=== PATIENT | male | born 1960 | race African-American/Black ===

== ENCOUNTER 2018-02-17 22:08 | Emergency (ER) | payer OTHER ==
[2018-02-17 22:37] VITALS: BP 163/100; PULSE 102; TEMP 97.6; BMI 39.5
[2018-02-17] MEDS ORDERED: ACETAMINOPHEN 500 MG TABLET (FP) PO ONE (23:34)
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
[2018-02-17] MEDS ORDERED: ACETAMINOPHEN 325 MG TABLET (FP) ONE (23:42)
== END 2018-02-18 01:05 | disposition home or self-care (01) ==
LOC: JER 22:08
DX: S49.82XA Other specified injuries of left shoulder and upper arm, initial encounter (principal); W18.39XA Other fall on same level, initial encounter; Y93.89 Activity, other specified; Y92.118 Other place in children's home and orphanage as the place of occurrence of the external cause; Y99.0 Civilian activity done for income or pay
CPT/HCPCS: 73030-TC-LT-FY; 99281-25

== ENCOUNTER 2019-01-13 00:16 | Emergency (ER) | payer OTHER ==
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
--- NOTE | 2019-01-13 02:18 | PDOC ---
*Physical Exam - Vital Signs Last Vital Signs Temp Pulse Resp BP Pulse Ox 98.1 F 100 H 16 144/81 97 01/13/19 00:16 01/13/19 00:16 01/13/19 00:16 01/13/19 00:16 01/13/19 00:16 Medical Decision Making - Medical Decision Making 01/13/19 02:18 Patient seen by the advanced practice provider under my direct supervision. Ancillary testing reviewed as necessary. I agree with plan as outlined by the advanced practice provider. *DC/Admit/Observation/Transfer Diagnosis at time of Disposition: Headache, Neck strain - Discharge Dispostion Condition at time of disposition: Fair - Referrals Referrals: Tmi Souza MD [Primary Care Provider] - - Patient Instructions - Post Discharge Activity
[2019-01-13 02:23] VITALS: BP 144/81; PULSE 100; TEMP 98.1; BMI 43.2
[2019-01-13] MEDS ORDERED: KETOROLAC TROMETHAMINE 30 MG/1 ML VIAL IM ONE (03:11)
[2019-01-13] MEDS ORDERED: KETOROLAC TROMETHAMINE 30 MG/1 ML VIAL ONE (03:26)
== END 2019-01-13 03:30 | disposition home or self-care (01) ==
LOC: JER 00:16
PROC: 3E0233Z Introduction of Anti-inflammatory into Muscle, Percutaneous Approach (ICD-10-PCS; principal; 2019-01-13)
DX: S16.1XXA Strain of muscle, fascia and tendon at neck level, initial encounter (principal); Y04.2XXA Assault by strike against or bumped into by another person, initial encounter; Y93.89 Activity, other specified; Y92.159 Unspecified place in reform school as the place of occurrence of the external cause; Y99.0 Civilian activity done for income or pay; Z72.0 Tobacco use; R10.9 Unspecified abdominal pain; E78.00 Pure hypercholesterolemia, unspecified
CPT/HCPCS: 70450-TC; 72125-TC; 99281-25

== ENCOUNTER 2020-07-26 17:16 | Emergency (ER) | payer OTHER ==
[2020-07-26 17:24] VITALS: BP 150/76; PULSE 94; TEMP 98; BMI 40.8
[2020-07-26] MEDS ORDERED: DIPHTH,PERTUSS(ACELL),TET 0.5 ML DISP.SYRIN IM ONE ×2 (18:07→18:17)
== END 2020-07-26 20:31 | disposition home or self-care (01) ==
LOC: JERFT 17:16
PROC: 3E0234Z Introduction of Serum, Toxoid and Vaccine into Muscle, Percutaneous Approach (ICD-10-PCS; principal; 2020-07-26)
DX: S61.319A Laceration without foreign body of unspecified finger with damage to nail, initial encounter (principal)
CPT/HCPCS: 73140-TC-LT-FY; 90715; 99284-25

== ENCOUNTER 2020-11-08 14:42 | Emergency (ER) | payer OTHER ==
[2020-11-08 14:56] VITALS: BP 160/66; PULSE 99; TEMP 98.8; BMI 40.8
== END 2020-11-08 16:03 | disposition home or self-care (01) ==
LOC: FER 14:42
DX: U07.1 COVID-19 (principal)
CPT/HCPCS: 71045-TC-FY; 99284-25; C9803; U0003

== ENCOUNTER 2020-11-09 08:35 | Emergency (ER) | payer OTHER ==
[2020-11-09 09:01] VITALS: BMI 41.1
[2020-11-09] MEDS ORDERED: BAMLANIVIMAB 700 MG in SODIUM CHLORIDE 250 ML IVPB ONE (09:31)
[2020-11-09 11:57] VITALS: TEMP 98
[2020-11-09 12:09] LABS: BASO % 0.6 % (0-2.0); EOS % 0.6 % (0-4.5); HEMATOCRIT 38.9 % (35.4-49); HEMOGLOBIN 13.4 GM/dL (11.7-16.9); LYMPH % 32.7 % (8-40); MCH 33.1 pg (25.7-33.7); MCHC 34.3 g/dl (32.0-35.9); MEAN CELL VOLUME 96.5 fl (80-96); MEAN PLT VOLUME 7.4 fl (7.5-11.1); MONO % 12.8 % (3.8-10.2); NEUT % 53.3 % (42.8-82.8); PLATELET COUNT 209 K/MM3 (134-434); RBC 4.04 M/mm3 (4.00-5.60); RDW 11.9 % (11.9-15.9); WHITE BLOOD COUNT 3.7 K/mm3 (4.0-10.0)
[2020-11-09 12:35] LABS: POTASSIUM 4.1 mmol/L (3.5-5.1)
[2020-11-09 12:37] LABS: CALCIUM 9.1 mg/dL (8.5-10.1)
[2020-11-09 12:41] LABS: CREATININE 1.1 mg/dL (0.55-1.3)
[2020-11-09 12:42] LABS: BILIRUBIN,TOTAL 0.7 mg/dL (0.2-1); TOT PROT 7.8 g/dl (6.4-8.2)
[2020-11-09 13:15] VITALS: BP 133/75; PULSE 86
[2020-11-09] MEDS ORDERED: ACETAMINOPHEN 1000 MG/100 ML VIAL (NON FORMULARY) IVPB ONE (14:02)
== END 2020-11-09 15:04 | disposition home or self-care (01) ==
LOC: JER 08:35
DX: U07.1 COVID-19 (principal)
CPT/HCPCS: 36415; 80053; 85025; 99284-25; J0131; M0239; Q0239

== ENCOUNTER 2021-11-29 19:30 | Emergency (ER) | payer OTHER ==
[2021-11-29 19:40] VITALS: BP 145/84; PULSE 90; TEMP 98.5; BMI 43.6
[2021-11-29] MEDS ORDERED: FAMOTIDINE 20 MG TABLET PO ONE (20:43)
[2021-11-29] MEDS ORDERED: MAG HYDROX/AL HYDROX/SIMETH 30 ML UNIT-DOSE CUP PO ONE (20:43)
[2021-11-29] MEDS ORDERED: MAG HYDROX/AL HYDROX/SIMETH 30 ML UNIT-DOSE CUP ONE (20:52)
[2021-11-29] MEDS ORDERED: FAMOTIDINE 20 MG TABLET ONE (20:52)
[2021-11-29 21:13] LABS: ALBUMIN 4.5 g/dl (3.4-5.0); ALK PHOS 46 U/L (45-117); ANION GAP 18 MMOL/L (8-16); BILIRUBIN,TOTAL 0.6 mg/dl (0.2-1); CALCIUM 9.9 mg/dl (8.5-10); CHLORIDE 97 mmol/L (98-107); CO2 21 mmol/L (21-32); GLUCOSE,RANDOM 110 mg/dl (74-106); SGOT/AST 24 U/L (15-37); SGPT/ALT 28 U/L (13-61); SODIUM 136 mmol/L (136-145); TOT PROT 7.9 g/dl (6.4-8.2)
[2021-11-29 22:55] LABS: BASO % 0.6 % (0-2.0); EOS % 1.2 % (0-4.5); HEMATOCRIT 40.6 % (35.4-49); HEMOGLOBIN 13.4 GM/dL (11.7-16.9); LYMPH % 24.7 % (8-40); MEAN CELL VOLUME 97.2 fl (80-96); MEAN PLT VOLUME 7.8 fl (7.5-11.1); NEUT % 65.5 % (42.8-82.8); PLATELET COUNT 262 10^3/uL (134-434); RBC 4.18 M/mm3 (4.00-5.60); RDW 12.3 % (11.9-15.9); WHITE BLOOD COUNT 5.5 K/mm3 (4.0-10.0)
== END 2021-11-29 23:57 | disposition home or self-care (01) ==
LOC: FER 19:30
DX: K21.9 Gastro-esophageal reflux disease without esophagitis (principal)
CPT/HCPCS: 36415; 80053; 81003; 81015; 82550; 82553; 84484; 85025; 93005; 99284-25

== ENCOUNTER 2022-09-28 12:24 | Emergency (ER) | payer OTHER ==
[2022-09-28 12:49] VITALS: BP 164/74; PULSE 110; RESP 18; TEMP 97.6; BMI 38.9
[2022-09-28] MEDS ORDERED: PANTOPRAZOLE 40 MG TABLET PO ONE ×2 (13:52→14:22)
[2022-09-28] MEDS ORDERED: MAG HYDROX/AL HYDROX/SIMETH -MYLANTA- ORAL SUSPENSION PO ONE (13:52)
[2022-09-28] MEDS ORDERED: MAG HYDROX/AL HYDROX/SIMETH 30 ML UNIT-DOSE CUP ONE (14:22)
[2022-09-28 15:02] LABS: HEMATOCRIT 38.8 % (35.4-49); HEMOGLOBIN 13.1 GM/dL (11.7-16.9); MCH 32.8 pg (25.7-33.7); MCHC 33.7 g/dl (32.0-35.9); MEAN CELL VOLUME 97.3 fl (80-96); MEAN PLT VOLUME 7.1 fl (7.5-11.1); PLATELET COUNT 239 10^3/uL (134-434); RBC 3.98 M/mm3 (4.00-5.60); RDW 12.8 % (11.9-15.9); WHITE BLOOD COUNT 5.2 K/mm3 (4.0-10.0)
[2022-09-28 15:30] LABS: CALCIUM 9.2 mg/dL (8.5-10.1)
[2022-09-28 15:31] LABS: ALBUMIN 4.3 g/dl (3.4-5.0)
[2022-09-28 15:34] LABS: CREATININE 1.1 mg/dL (0.55-1.3)
[2022-09-28 15:35] LABS: BILIRUBIN,TOTAL 0.5 mg/dL (0.2-1); TOT PROT 7.8 g/dl (6.4-8.2)
[2022-09-28] MEDS ORDERED: NAPH,MB-DB/K PH,MBDB POWDER PACKET PO ONE (15:50)
[2022-09-28] MEDS ORDERED: NAPH,MB-DB/K PH,MBDB POWDER PACKET ONE (15:53)
== END 2022-09-28 16:57 | disposition home or self-care (01) ==
LOC: JER 12:24
DX: R10.13 Epigastric pain (principal)
CPT/HCPCS: 36415; 80053; 83690; 84484; 85027; 93005; 93010; 99284-25

== ENCOUNTER 2022-11-19 14:18 | Emergency (ER) | payer OTHER ==
[2022-11-19 14:31] VITALS: BP 152/80; PULSE 96; RESP 18; TEMP 98.6; BMI 42.2
[2022-11-19] MEDS ORDERED: MAG HYDROX/AL HYDROX/SIMETH -MYLANTA- ORAL SUSPENSION PO ONE (14:40)
[2022-11-19] MEDS ORDERED: FAMOTIDINE 20 MG/50 ML IVPB 20 MG in PREMIX 50 IVPB ONE (14:40)
[2022-11-19] MEDS ORDERED: FAMOTIDINE 20 MG/50 ML IVPB 20 MG/50 ML MG IVPB ONE (15:12)
[2022-11-19] MEDS ORDERED: MAG HYDROX/AL HYDROX/SIMETH 30 ML UNIT-DOSE CUP ONE (15:12)
[2022-11-19 15:45] LABS: ALBUMIN 4.4 g/dl (3.4-5.0); BILIRUBIN,TOTAL 0.9 mg/dl (0.2-1); CALCIUM 9.3 mg/dl (8.5-10); CREATININE 0.9 mg/dl (0.55-1.3); TOT PROT 7.8 g/dl (6.4-8.2)
[2022-11-19 15:46] LABS: HEMATOCRIT 40.3 % (35.4-49); HEMOGLOBIN 14.1 G/dL (11.7-16.9); MCH 33.3 pg (25.7-33.7); MCHC 34.9 g/dl (32.0-35.9); MEAN CELL VOLUME 95.6 fl (80-96); MEAN PLT VOLUME 7.5 fl (7.5-11.1); RBC 4.22 10^6/uL (4.00-5.60); RDW 12.4 % (11.9-15.9); WHITE BLOOD COUNT 4.4 10^3/uL (4.0-10.8)
[2022-11-19 15:50] LABS: PLATELET ESTIMATE ADEQUATE
== END 2022-11-19 16:38 | disposition home or self-care (01) ==
LOC: FER 14:18
PROC: 3E033GC Introduction of Other Therapeutic Substance into Peripheral Vein, Percutaneous Approach (ICD-10-PCS; principal; 2022-11-19)
DX: K92.1 Melena (principal)
CPT/HCPCS: 36415; 80053; 82272; 85027; 86850; 86900; 86901; 93005; 99284-25

== ENCOUNTER 2023-10-17 07:53 | Emergency (ER) | payer OTHER ==
[2023-10-17 08:16] VITALS: BP 153/99; PULSE 93; RESP 18; TEMP 97.9; BMI 36.9
[2023-10-17] MEDS ORDERED: MAG HYDROX/AL HYDROX/SIMETH -MYLANTA- ORAL SUSPENSION PO ONE (08:17)
[2023-10-17] MEDS ORDERED: FAMOTIDINE 20 MG/50 ML IVPB 20 MG/50 ML MG IVPB ONE ×2 (08:17→08:54)
[2023-10-17] MEDS ORDERED: MAG HYDROX/AL HYDROX/SIMETH 30 ML UNIT-DOSE CUP ONE (08:54)
[2023-10-17 09:14] LABS: HEMATOCRIT 40.6 % (35.4-49); HEMOGLOBIN 13.8 G/dL (11.7-16.9); MCH 32.9 pg (25.7-33.7); MCHC 33.9 g/dl (32.0-35.9); MEAN CELL VOLUME 96.9 fl (80-96); MEAN PLT VOLUME 7.3 fl (7.5-11.1); PLATELET COUNT 214.5 10^3/uL (134-434); RBC 4.19 10^6/uL (4.00-5.60); RDW 13.1 % (11.9-15.9); WHITE BLOOD COUNT 5.7 10^3/uL (4.0-10.8)
[2023-10-17 09:18] LABS: PLATELET ESTIMATE ADEQUATE
[2023-10-17 09:19] LABS: ALBUMIN 4.6 g/dl (3.4-5.0); BILIRUBIN,TOTAL 0.8 mg/dl (0.2-1); CALCIUM 9.9 mg/dl (8.5-10.1); CREATININE 0.9 mg/dl (0.6-1.3); POTASSIUM 3.5 mmol/L (3.5-5.1); TOT PROT 7.4 g/dl (6.4-8.2)
== END 2023-10-17 12:39 | disposition home or self-care (01) ==
LOC: FER 07:53
PROC: 3E033GC Introduction of Other Therapeutic Substance into Peripheral Vein, Percutaneous Approach (ICD-10-PCS; principal; 2023-10-17)
DX: S86.812A Strain of other muscle(s) and tendon(s) at lower leg level, left leg, initial encounter (principal); K21.9 Gastro-esophageal reflux disease without esophagitis; R07.9 Chest pain, unspecified; M79.605 Pain in left leg; X50.0XXA Overexertion from strenuous movement or load, initial encounter; Y93.01 Activity, walking, marching and hiking; Y92.009 Unspecified place in unspecified non-institutional (private) residence as the place of occurrence of the external cause
CPT/HCPCS: 36415; 71046-TC-FY; 80053; 83690; 84484; 85027; 93005; 99285-25

== ENCOUNTER 2024-01-03 18:50 | Emergency (ER) | payer OTHER ==
[2024-01-03 19:12] VITALS: BP 139/83; PULSE 78; RESP 18; TEMP 98; BMI 39.5
[2024-01-03] MEDS ORDERED: KETOROLAC TROMETHAMINE 60 MG/2 ML VIAL ONE (20:26)
[2024-01-03 20:45] LABS: HEMATOCRIT 42.5 % (35.4-49); HEMOGLOBIN 14.5 G/dL (11.7-16.9); MCH 32.6 pg (25.7-33.7); MEAN PLT VOLUME 7.5 fl (7.5-11.1); PLATELET COUNT 220.6 10^3/uL (134-434); RBC 4.43 10^6/uL (4.00-5.60); RDW 12.6 % (11.9-15.9)
[2024-01-03] MEDS: KETOROLAC TROMETHAMINE 60 MG/2 ML VIAL IM ONE (20:46)
[2024-01-03 21:13] LABS: ALBUMIN 4.9 g/dl (3.4-5.0); BILIRUBIN,TOTAL 0.8 mg/dl (0.2-1); CALCIUM 10.1 mg/dl (8.5-10.1); CREATININE 0.9 mg/dl (0.6-1.3); POTASSIUM 3.6 mmol/L (3.5-5.1); TOT PROT 7.8 g/dl (6.4-8.2)
== END 2024-01-03 22:10 | disposition home or self-care (01) ==
LOC: FER 18:50
DX: M25.512 Pain in left shoulder (principal); M79.602 Pain in left arm
CPT/HCPCS: 36415; 80053; 82550; 82553; 84484; 85027; 93005; 99284-25

== ENCOUNTER 2025-05-16 03:12 | Emergency (ER) | payer OTHER ==
[2025-05-16 03:18] VITALS: TEMP 97.7; BMI 42.2
[2025-05-16] MEDS ORDERED: ONDANSETRON 4 MG/2 ML VIAL IVPUSH ONE (04:14)
[2025-05-16] MEDS ORDERED: FAMOTIDINE 20 MG/50 ML IVPB 20 MG/50 ML MG IVPB ONE ×2 (04:14→04:27)
[2025-05-16] MEDS ORDERED: LACTATED RINGERS SOLUTION 1000 ML INFUS.BAG IV ONE (04:15)
[2025-05-16] MEDS ORDERED: ONDANSETRON 4 MG/2 ML VIAL ONE (04:28)
[2025-05-16] MEDS: FAMOTIDINE 20 MG/50 ML IVPB 20 MG/50 ML MG IVPB ONE (06:42)
[2025-05-16] MEDS: LACTATED RINGERS SOLUTION 1000 ML INFUS.BAG IV ONE (06:42)
[2025-05-16] MEDS: ONDANSETRON 4 MG/2 ML VIAL IVPUSH ONE (06:43)
[2025-05-16 06:52] VITALS: RESP 19
[2025-05-16 09:44] VITALS: BP 145/69; PULSE 78
[2025-05-16] MEDS: SODIUM CHLORIDE 0.9% 500 ML INFUS.BAG IV ONE (14:02)
== END 2025-05-16 16:06 | disposition home or self-care (01) ==
LOC: JER 03:12
PROC: 3E033GC Introduction of Other Therapeutic Substance into Peripheral Vein, Percutaneous Approach (ICD-10-PCS; principal; 2025-05-16)
DX: F12.929 Cannabis use, unspecified with intoxication, unspecified (principal); T40.711A Poisoning by cannabis, accidental (unintentional), initial encounter
CPT/HCPCS: 99284-25